=== PATIENT | male | born 1995 | race Caucasian/White ===

== ENCOUNTER 2021-11-14 18:22 | Emergency (ER) | payer OTHER ==
[2021-11-14] MEDS ORDERED: BACLOFEN 10MG T10 MG PO ×2 (20:22→20:25)
[2021-11-14] MEDS ORDERED: NAPROXEN500 MG PO ×2 (20:22→20:25)
== END 2021-11-14 20:28 | disposition home or self-care (01) ==
LOC: FER 18:22
DX: M25.562 Pain in left knee (principal); R51.9 Headache, unspecified; M54.2 Cervicalgia; F17.210 Nicotine dependence, cigarettes, uncomplicated; V43.52XA Car driver injured in collision with other type car in traffic accident, initial encounter
CPT/HCPCS: 70450; 71046; 72125; 73564; J1100; J1885

== ENCOUNTER 2022-05-12 09:01 | Emergency (ER) | payer OTHER ==
[~2022-05-12 09:01] MED LIST: BACLOFEN 10MG T10 MG PO; NAPROXEN500 MG PO
== END 2022-05-12 09:43 | disposition home or self-care (01) ==
LOC: FER 09:01
DX: M25.571 Pain in right ankle and joints of right foot (principal); X50.1XXA Overexertion from prolonged static or awkward postures, initial encounter; Y92.89 Other specified places as the place of occurrence of the external cause; Y99.0 Civilian activity done for income or pay
CPT/HCPCS: 73610